=== PATIENT | male | born 1950 | race Caucasian/White ===

== ENCOUNTER 2017-11-16 06:51 | Emergency (ER) | payer OTHER, BC ==
[~2017-11-16] VITALS: Ht 175.3 cm; Wt 81.0 kg
[~2017-11-16 06:51] MED LIST: ADAPALENE45 GM TP; ALLEGRA-D 121 TABLET PO; BETAMETHASONE D50 G1 TP; COMBIVENT RESPIM4 GM IH; DALIRESP500 MCG PO; DULERA 100 MCG/13 GM IH; PREDNISONE20 MG PO; PROAIR HFA8.5 GM IH; SINGULAIR10 MG PO; TESSALON200 MG PO
[2017-11-16 07:46] LABS: BASOPHIL (%) 0.6 % (0-1); EOSINOPHIL (%) 1.2 % (0-5); EOSINOPHIL COUNT 0.1 K/uL (0-0.3); HEMATOCRIT 45.3 % (38.0-50.0); HEMOGLOBIN 15.8 G/DL (12.5-16.6); IMMATURE GRANULOCYTE (%) 0.4 % (0.0-0.7); LYMPHOCYTE (%) 12.8 % (15-42); LYMPHOCYTE COUNT 0.6 K/uL (1.0-2.8); MCH 30.9 PG (29.0-34.0); MCHC 34.9 G/DL (30.0-36.0); MCV 88.6 FL (86-99); MONOCYTE (%) 8.3 % (3-12); MONOCYTE COUNT 0.4 K/uL (0-0.8); NEUTROPHIL (%) 76.7 % (45-76); NEUTROPHIL COUNT 3.7 K/uL (1.8-6.4); PLATELET COUNT 193 K/uL (156-360); RBC DIS.WIDTH-CV 12.9 % (11.8-14.6); RBC DIS.WIDTH-SD 42.3 % (39-53); RED BLOOD COUNT 5.11 M/uL (4.00-5.50); WHITE BLOOD COUNT 4.8 K/uL (4.1-10.2)
[2017-11-16 07:59] LABS: ALBUMIN 4.3 G/DL (3.2-4.8); CHLORIDE 100 MEQ/L (99-109); POTASSIUM 4.5 MEQ/L (3.7-5.4); SODIUM 137 MEQ/L (136-147); TOTAL BILIRUBIN 0.8 MG/DL (0.0-1.0)
[2017-11-16 08:05] LABS: ALKALINE PHOSPHATASE 80 IU/L (3-129); ALT (GPT) 18 IU/L (3-49); AST (GOT) 20 IU/L (2-34); CREATININE 1.3 MG/DL (0.6-1.3); GFR ESTIMATE (CALCULATED) 59 mL/min/ (58.99-99999); GLUCOSE 124 mg/dL (70-99); LIPASE 40 U/L (1.0-51.0); TOTAL PROTEIN 7.8 G/DL (6.4-8.3); UREA NITROGEN (BUN) 20 mg/dL (9-23)
[2017-11-16 10:02] LABS: APPEARANCE SL.HAZY ((CLEAR)); BILIRUBIN NEGATIVE; BLOOD MODERATE; COLOR YELLOW ((YELLOW)); GLUCOSE (STRIP) NEGATIVE; KETONES 20; LEUKOCYTES NEGATIVE; NITRITE NEGATIVE; PROTEIN (STRIP) 30; SPECIFIC GRAVITY 1.025 (1.000-1.030); UROBILINOGEN 0.2 MG/DL (0.2-1.0)
[2017-11-16 10:09] LABS: BACTERIA NONE SEEN /HPF; EPITHELIAL CELLS RARE /HPF; MUCUS 2+ /LPF
[2017-11-16 11:22] VITALS: BP 112/72
== END 2017-11-16 11:23 | disposition home or self-care (01) ==
LOC: EME 06:51
PROVIDERS: Emergency Medicine
DX: J10.1 Influenza due to other identified influenza virus with other respiratory manifestations (principal); J44.9 Chronic obstructive pulmonary disease, unspecified; Z87.891 Personal history of nicotine dependence
CPT/HCPCS: 71046; 80053; 81003; 83605; 83690; 85025; 87502; 99281; 99285; J7030

== ENCOUNTER 2017-11-19 16:21 | Emergency (ER) | payer OTHER, BC ==
[~2017-11-19] VITALS: Ht 175.3 cm; Wt 81.1 kg
[2017-11-19 17:03] LABS: HEMATOCRIT 42.2 % (38.0-50.0); HEMOGLOBIN 15.2 G/DL (12.5-16.6); MCH 31.4 PG (29.0-34.0); MCV 87.2 FL (86-99); PLATELET COUNT 185 K/uL (156-360); RBC DIS.WIDTH-CV 12.7 % (11.8-14.6); RBC DIS.WIDTH-SD 40.4 % (39-53); RED BLOOD COUNT 4.84 M/uL (4.00-5.50); WHITE BLOOD COUNT 4.3 K/uL (4.1-10.2)
[2017-11-19 17:11] LABS: CHLORIDE 101 mEq/L (99-109); SODIUM 136 mEq/L (136-147)
[2017-11-19 17:12] LABS: GLUCOSE 161 mg/dL (70-99)
[2017-11-19 17:16] LABS: CREATININE 1.2 mg/dL (0.6-1.3); GFR ESTIMATE (CALCULATED) > 59 mL/min/ (58.99-99999)
[2017-11-19 17:17] LABS: UREA NITROGEN (BUN) 21 mg/dL (9-23)
[2017-11-19] MEDS ORDERED: DUONEB 2.5-0.5 M3 ML AEROSOL (18:27)
[2017-11-19] MEDS ORDERED: PROVENTIL,2.5 MG/3 M IH (18:51)
[2017-11-19 19:38] VITALS: BP 132/75
== END 2017-11-19 19:38 | disposition home or self-care (01) ==
LOC: EME 16:21
DX: J44.1 Chronic obstructive pulmonary disease with (acute) exacerbation (principal); J44.0 Chronic obstructive pulmonary disease with (acute) lower respiratory infection; J11.1 Influenza due to unidentified influenza virus with other respiratory manifestations; Z87.891 Personal history of nicotine dependence
CPT/HCPCS: 71046; 80048; 85027; 93005; 94640; 99281; 99284

== ENCOUNTER → 2018-01-13 | Outpatient (CLI) | payer BC ==
[~2018-01-13] VITALS: Ht 175.3 cm; Wt 77.6 kg
[~2018-01-13] MED LIST changes: +BREO ELLIPTA I1 EACH IH; +DUONEB 2.5-0.5 M3 ML AEROSOL; +INCRUSE ELLI62.5 MCG IH; +PROVENTIL,2.5 MG/3 M IH
== END | disposition home or self-care (01) ==
LOC: AMB 08:24
DX: K44.9 Diaphragmatic hernia without obstruction or gangrene (principal); K21.9 Gastro-esophageal reflux disease without esophagitis; R63.4 Abnormal weight loss; R19.7 Diarrhea, unspecified; R10.10 Upper abdominal pain, unspecified
CPT/HCPCS: 88305; 88342 TC; J2250

== ENCOUNTER → 2018-02-10 | Outpatient (CLI) | payer BC | END | disposition home or self-care (01) | LOC: MRI 12:59 → RAD 13:30 → MRI 13:30 | DX: R10.10 Upper abdominal pain, unspecified (principal); R63.4 Abnormal weight loss; R19.7 Diarrhea, unspecified | CPT/HCPCS: 74174 ==

== ENCOUNTER → 2018-03-01 | Outpatient (CLI) | payer BC | END | disposition home or self-care (01) | LOC: NUC 06:33 | DX: K21.9 Gastro-esophageal reflux disease without esophagitis (principal); R10.10 Upper abdominal pain, unspecified; R63.4 Abnormal weight loss | CPT/HCPCS: 78227; A9537; J2805 ==